=== PATIENT | female | born 1985 | race Caucasian/White ===

== ENCOUNTER 2020-02-03 16:00 | Outpatient (RCR) | payer BC | END 2020-02-06 | LOC: PT 16:00 | PROVIDERS: ATTEND Specialist | DX: M22.2X1 Patellofemoral disorders, right knee (principal); M22.2X2 Patellofemoral disorders, left knee; M25.561 Pain in right knee; M25.562 Pain in left knee; M62.81 Muscle weakness (generalized) ==

== ENCOUNTER 2020-03-01 09:00 | Outpatient (RCR) | payer BC | END 2020-03-07 | LOC: PT 09:00 | PROVIDERS: ATTEND Specialist | DX: M22.2X1 Patellofemoral disorders, right knee (principal); M22.2X2 Patellofemoral disorders, left knee; M25.561 Pain in right knee; M25.562 Pain in left knee; M62.81 Muscle weakness (generalized) ==